=== PATIENT | male | born 1960 | race Caucasian/White ===

== ENCOUNTER 2018-02-20 10:34 | Emergency (ER) | payer MEDICAID ==
[~2018-02-20] VITALS: Ht 177.8 cm; Wt 125.0 kg
[2018-02-20] MEDS ORDERED: LOSA25TA16 PO (10:37)
[2018-02-20] MEDS ORDERED: AMLO2.5T3 PO (10:37)
[2018-02-20] MEDS ORDERED: METF-445 PO (10:37)
[2018-02-20] MEDS ORDERED: HYDROCODONE/ACETAMINOPHEN 5-325 MG TABLET PO ONE (10:45)
[2018-02-20] MEDS ORDERED: IBUPROFEN 600 MG TABLET PO ONE (10:45)
[2018-02-20 11:19] LABS: APPEARANCE,URINE CLOUDY (CLEAR); BILIRUBIN,URINE NEGATIVE (NEGATIVE); GLUCOSE, URINE (UA) 100 mg/dL (NEGATIVE); KETONES,URINE NEGATIVE (NEGATIVE); LEUKOCYTE ESTERASE ,URINE TRACE (NEGATIVE); NITRATE,URINE NEGATIVE (NEGATIVE); OCCULT BLOOD,URINE MODERATE (NEGATIVE); PROTEIN,URINE SEE CONFIRM (NEGATIVE); UROBILINOGEN,URINE 0.2 mg/dL (<=1.0)
[2018-02-20 11:31] LABS: SULFOSALICYLIC ACID,URINE 1+ (Negative)
[2018-02-20 11:34] LABS: BACTERIA,URINE None Seen /HPF (None Seen); SQUAMOUS EPITHELIAL CELL,UR Moderate /LPF (None Seen)
[2018-02-20] MEDS ORDERED: CIPROFLOXACIN HCL 250 MG TABLET PO ONE (14:00)
[2018-02-20] MEDS ORDERED: CefTRIAXone SODIUM 1 GM/VIAL IM ONE (14:00)
[2018-02-20] MEDS ORDERED: AZITHROMYCIN 250 MG TABLET PO ONE (14:00)
[2018-02-20 14:34] VITALS: BP 124/90
== END 2018-02-20 14:54 | disposition home or self-care (01) ==
LOC: EMS 10:35
DX: N45.1 Epididymitis (principal); N50.89 Other specified disorders of the male genital organs; E11.9 Type 2 diabetes mellitus without complications; I10 Essential (primary) hypertension; Z79.84 Long term (current) use of oral hypoglycemic drugs
CPT/HCPCS: 76870; 81001; 82962; 87077; 87086; 87186; 87491; 87591; 96372; 99285; J0696

== ENCOUNTER 2018-09-09 22:40 | Emergency (ER) | payer SELFPAY ==
[~2018-09-09] VITALS: Ht 177.8 cm; Wt 130.4 kg
[~2018-09-09 22:40] MED LIST: AMLO2.5T4 PO; LOSA25TA41 PO; METF-445 PO
[2018-09-09] MEDS ORDERED: AMLO-511 PO (23:07)
[2018-09-09] MEDS ORDERED: LOSA50TA64 PO (23:07)
[2018-09-09 23:27] LABS: GLUCOSE,POINT OF CARE 349 MG/DL (70-110)
[2018-09-10] MEDS ORDERED: CloNIDine HCL 0.2 MG TABLET PO ONE
[2018-09-10 00:19] LABS: BASOPHILS % (AUTO) 0.4 % (0.0-2.0); EOSINOPHILS % (AUTO) 3.1 % (1.0-6.0); HEMATOCRIT 31.4 % (41-53); HEMOGLOBIN 10.5 g/dL (13.5-17.5); MEAN CORPUSCULAR HEMOGLOBIN 30.8 pg (26.0-34.0); MEAN CORPUSCULAR HGB CONC 33.3 G/dL (31.0-37.0); MEAN CORPUSCULAR VOLUME 93 fL (80-100); MONOCYTES # (AUTO) 0.6 K/uL (0.1-1.0); MONOCYTES % (AUTO) 9.6 % (2.0-9.0); NEUTROPHILS # (AUTO) 4.4 K/uL (1.8-7.7); NEUTROPHILS % (AUTO) 70.9 % (40.0-70.0); PLATELET COUNT (AUTO) 125 K/uL (150-450); RED BLOOD CELL COUNT(AUTO) 3.39 MIL/uL (4.50-5.90); RED CELL DISTRIBUTION WIDTH 13.3 % (11.5-14.5)
[2018-09-10 00:32] LABS: CREATININE 5.52 mg/dL (0.60-1.30); POTASSIUM 5.3 mmol/L (3.5-5.1)
[2018-09-10 00:39] LABS: ALBUMIN 3.5 g/dL (3.4-5.0); BILIRUBIN,TOTAL 0.2 mg/dL (0.1-1.0); TOTAL PROTEIN, SERUM 7.2 g/dL (6.4-8.2)
[2018-09-10] MEDS ORDERED: FUROSEMIDE 20 MG TABLET PO ONE (00:45)
[2018-09-10 01:50] VITALS: BP 150/84
== END 2018-09-10 02:18 | disposition home or self-care (01) ==
LOC: EMS 22:41
DX: I12.9 Hypertensive chronic kidney disease with stage 1 through stage 4 chronic kidney disease, or unspecified chronic kidney disease (principal); E11.22 Type 2 diabetes mellitus with diabetic chronic kidney disease; N18.9 Chronic kidney disease, unspecified; H11.32 Conjunctival hemorrhage, left eye; E66.01 Morbid (severe) obesity due to excess calories; Z68.41 Body mass index [BMI] 40.0-44.9, adult; Z79.84 Long term (current) use of oral hypoglycemic drugs
CPT/HCPCS: 93005

== ENCOUNTER 2019-08-16 11:30 | Inpatient (IN) | payer MEDICARE, OTHER ==
[~2019-08-16] VITALS: Ht 172.7 cm; Wt 125.0 kg
[~2019-08-16 11:30] MED LIST changes: -AMLO2.5T4 PO; +AMLO5TAB9 PO; +LOSA-88 PO; -LOSA25TA41 PO
[2019-08-16] MEDS ORDERED: 0.9% SODIUM CHLORIDE 10 ML SYRINGE IVP PRN ×2 (12:45→16:30)
[2019-08-16 13:34] LABS: BASOPHILS % (AUTO) 0.1 % (0.0-2.0); EOSINOPHILS % (AUTO) 0.2 % (1.0-6.0); HEMOGLOBIN 11.5 g/dL (13.5-17.5); LYMPHOCYTES # (AUTO) 0.9 K/uL (1.0-4.8); LYMPHOCYTES % (AUTO) 6.6 % (22.0-44.0); MEAN CORPUSCULAR HEMOGLOBIN 30.5 pg (26.0-34.0); MEAN CORPUSCULAR HGB CONC 32.8 G/dL (31.0-37.0); MEAN CORPUSCULAR VOLUME 93 fL (80-100); MONOCYTES # (AUTO) 1.2 K/uL (0.1-1.0); MONOCYTES % (AUTO) 8.6 % (2.0-9.0); NEUTROPHILS # (AUTO) 11.9 K/uL (1.8-7.7); NEUTROPHILS % (AUTO) 84.5 % (40.0-70.0); PLATELET COUNT (AUTO) 126 K/uL (150-450); RED BLOOD CELL COUNT(AUTO) 3.77 MIL/uL (4.50-5.90); RED CELL DISTRIBUTION WIDTH 14.2 % (11.5-14.5)
[2019-08-16 13:49] LABS: CALCIUM, TOTAL 10.4 mg/dL (8.8-10.5); CREATININE 10.14 mg/dL (0.60-1.30); POTASSIUM 5.1 mmol/L (3.5-5.1)
[2019-08-16 13:55] LABS: LACTIC ACID 1.5 mmol/L (0.4-2.0)
[2019-08-16 14:02] LABS: ALBUMIN 3.3 g/dL (3.4-5.0); BILIRUBIN,TOTAL 0.4 mg/dL (0.1-1.0); TOTAL PROTEIN, SERUM 8.3 g/dL (6.4-8.2)
[2019-08-16 14:15] LABS: APPEARANCE,URINE CLEAR (CLEAR); BILIRUBIN,URINE NEGATIVE (NEGATIVE); GLUCOSE, URINE (UA) 100 mg/dL (NEGATIVE); KETONES,URINE NEGATIVE (NEGATIVE); LEUKOCYTE ESTERASE ,URINE TRACE (NEGATIVE); NITRATE,URINE NEGATIVE (NEGATIVE); OCCULT BLOOD,URINE TRACE (NEGATIVE); PH,URINE 8.5 (5.0-8.0); PROTEIN,URINE SEE CONFIRM (NEGATIVE); UROBILINOGEN,URINE 0.2 mg/dL (<=1.0)
[2019-08-16 14:22] LABS: BACTERIA,URINE None Seen /HPF (None Seen); RBC,URINE 0-2 /HPF (0-2); SULFOSALICYLIC ACID,URINE 2+ (Negative)
[2019-08-16] MEDS ORDERED: ONDANSETRON HCL 4 MG/2 ML VIAL IVP ONE (14:30)
[2019-08-16] MEDS ORDERED: MORPHINE SULFATE 4 MG/ML SYRINGE IVP ONE (14:30)
[2019-08-16] MEDS ORDERED: PIPERACILLIN/TAZO 3.375 GM/D5W 50 ML IV ONE (15:15)
[2019-08-16] MEDS ORDERED: ACETAMINOPHEN 1000 MG/ISO-OSM 100 ML IV ONE (16:30)
[2019-08-16] MEDS ORDERED: ACETAMINOPHEN 325 MG TABLET PO PRN ×2 (16:30→17:15)
[2019-08-16] MEDS ORDERED: HydrALAZINE HCL 20 MG/ML VIAL IVP PRN (17:15)
[2019-08-16] MEDS ORDERED: DEXTROSE 50%-WATER 25 GM/50 ML SYRINGE IVP PRN (17:15)
[2019-08-16] MEDS ORDERED: SODIUM CHLORIDE 0.9% 1,000 ML IV ONE (17:15)
[2019-08-16] MEDS ORDERED: MAGNESIUM HYDROXIDE SUSPENSION 30 ML UDCUP PO PRN (17:15)
[2019-08-16] MEDS ORDERED: ZOLPIDEM TARTRATE 5 MG TABLET PO PRN (17:15)
[2019-08-16] MEDS ORDERED: BISACODYL 10 MG RECTAL RECTAL SUPPOSITORY PR PRN (17:15)
[2019-08-16] MEDS ORDERED: MORPHINE SULFATE 2 MG/ML SYRINGE IVP PRN (17:15)
[2019-08-16] MEDS ORDERED: ONDANSETRON HCL 4 MG/2 ML VIAL IVP PRN (17:15)
[2019-08-16] MEDS ORDERED: BUPIVACAINE HCL/PF 0.25% 30 ML VIAL ONE (17:56)
[2019-08-16] MEDS ORDERED: SODIUM CHLORIDE 0.9% 1,000 ML ONE ×2 (17:56→19:27)
[2019-08-16] MEDS ORDERED: SODIUM CL IRRIG SOLN BAG 0 ML IRRIG ONE (17:56)
[2019-08-16] MEDS ORDERED: BUPIVACAINE 0.25%/EPI 1:200,000/PF 10 ML VIAL ONE (17:57)
[2019-08-16] MEDS ORDERED: HYDROmorphone 2 MG/ML SYRINGE IVP PRN (18:00)
[2019-08-16] MEDS ORDERED: FentaNYL CITRATE-PF 100 MCG/2 ML VIAL IVP PRN (18:00)
[2019-08-16] MEDS ORDERED: CefTRIAXone 1 GM/DEXTROSE 50 ML IV STA (19:08)
[2019-08-16] MEDS ORDERED: MetroNIDAZOLE 500 MG/NACL 100 ML IV STA (19:08)
[2019-08-16 21:35] LABS: GLUCOMETER DEV NAME(LOC) SDS.; GLUCOSE,POINT OF CARE 136 MG/DL (70-110)
[2019-08-16 21:40] VITALS: BP 114/75
[2019-08-16] MEDS: LOSARTAN POTASSIUM 50 MG TABLET PO SCH (22:23)
[2019-08-16] MEDS: DOCUSATE SODIUM 100 MG CAPSULE PO SCH (22:24)
[2019-08-16 23:33] VITALS: BP 126/78
[2019-08-16] MEDS: HYDROCODONE/ACETAMINOPHEN 5-325 MG TABLET PO PRN (23:43)
[2019-08-16] MEDS: HEPARIN SODIUM,PORCINE 5,000 UNITS/ML VIAL SQ SCH (23:43)
[2019-08-17] MEDS ORDERED: SODIUM CHLORIDE 0.9% 250 ML IV ONE (01:30)
[2019-08-17] MEDS: PIPERACILLIN SODIUM/TAZOBACTAM 2.25 GM in DEXTROSE 5%-WATER 50 ML IV SCH ×3 (01:40→18:19)
[2019-08-17 05:01] VITALS: BP 122/68
[2019-08-17 05:45] LABS: BASOPHILS % (AUTO) 0.1 % (0.0-2.0); EOSINOPHILS % (AUTO) 0.1 % (1.0-6.0); HEMATOCRIT 32.8 % (41-53); HEMOGLOBIN 11.2 g/dL (13.5-17.5); LYMPHOCYTES # (AUTO) 0.7 K/uL (1.0-4.8); LYMPHOCYTES % (AUTO) 6.1 % (22.0-44.0); MEAN CORPUSCULAR HEMOGLOBIN 31.8 pg (26.0-34.0); MEAN CORPUSCULAR HGB CONC 34.2 G/dL (31.0-37.0); MEAN CORPUSCULAR VOLUME 93 fL (80-100); MONOCYTES # (AUTO) 0.8 K/uL (0.1-1.0); MONOCYTES % (AUTO) 7.1 % (2.0-9.0); PLATELET COUNT (AUTO) 122 K/uL (150-450); RED BLOOD CELL COUNT(AUTO) 3.54 MIL/uL (4.50-5.90); RED CELL DISTRIBUTION WIDTH 14.1 % (11.5-14.5)
[2019-08-17 05:48] LABS: NEUTROPHILS % (AUTO) 86.6 % (40.0-70.0)
[2019-08-17 05:56] LABS: CALCIUM, TOTAL 8.9 mg/dL (8.8-10.5); CREATININE 10.71 mg/dL (0.60-1.30); POTASSIUM 5.1 mmol/L (3.5-5.1)
[2019-08-17] MEDS ORDERED: PROPOFOL 1% 20 ML VIAL IVP ONE (06:47)
[2019-08-17] MEDS ORDERED: ROCURONIUM BROMIDE 10 MG/ML 5 ML VIAL IVP ONE (06:47)
[2019-08-17] MEDS ORDERED: ONDANSETRON HCL 4 MG/2 ML VIAL IVP ONE (06:47)
[2019-08-17] MEDS ORDERED: LIDOCAINE/PF 2% 5 ML VIAL IM ONE (06:47)
[2019-08-17] MEDS ORDERED: EPHEDrine SULFATE 50 MG/ML VIAL IM ONE (06:47)
[2019-08-17 08:21] VITALS: BP 143/83
[2019-08-17] MEDS: HEPARIN SODIUM,PORCINE 5,000 UNITS/ML VIAL SQ SCH ×3 (08:37→23:41)
[2019-08-17] MEDS: HYDROCODONE/ACETAMINOPHEN 5-325 MG TABLET PO PRN (08:37)
[2019-08-17] MEDS: DOCUSATE SODIUM 100 MG CAPSULE PO SCH ×2 (08:38→20:39)
[2019-08-17] MEDS: LOSARTAN POTASSIUM 50 MG TABLET PO SCH ×2 (08:38→20:38)
[2019-08-17] MEDS: PANTOPRAZOLE SODIUM 40 MG DR TABLET PO SCH (08:38)
[2019-08-17] MEDS: AmLODIPine BESYLATE 5 MG TABLET PO SCH (08:38)
[2019-08-17 09:24] LABS: GLUCOMETER DEV NAME(LOC) 6N.1; GLUCOSE,POINT OF CARE 136 MG/DL (70-110)
[2019-08-17 09:25] LABS: GLUCOMETER DEV NAME(LOC) 6N.1; GLUCOSE,POINT OF CARE 116 MG/DL (70-110)
[2019-08-17] MEDS: OXYGEN THERAPY IH SCH (09:44)
[2019-08-17] MEDS: INSULIN LISPRO 100 UNITS/ML SQ PRN ×2 (11:00→18:18)
[2019-08-17 11:15] VITALS: BP 108/65
[2019-08-17] MEDS ORDERED: MANNITOL 25%-12.5 GM/50 ML VIAL IVP ONE (13:55)
[2019-08-17 14:05] LABS: GLUCOMETER DEV NAME(LOC) 6N.1; GLUCOSE,POINT OF CARE 236 MG/DL (70-110)
[2019-08-17 18:35] VITALS: BP 124/64
[2019-08-17 20:45] VITALS: BP 117/71
[2019-08-17 21:16] LABS: GLUCOMETER DEV NAME(LOC) 6N.1; GLUCOSE,POINT OF CARE 140 MG/DL (70-110)
[2019-08-17 23:00] VITALS: BP 110/66
[2019-08-18 05:30] VITALS: BP 136/77
[2019-08-18] MEDS ORDERED: FentaNYL CITRATE-PF 100 MCG/2 ML VIAL IVP ONE (05:52)
[2019-08-18 06:09] LABS: GLUCOMETER DEV NAME(LOC) 4E.2; GLUCOSE,POINT OF CARE 144 MG/DL (70-110)
[2019-08-18 06:09] LABS: GLUCOMETER DEV NAME(LOC) 4E.2; GLUCOSE,POINT OF CARE 164 MG/DL (70-110)
[2019-08-18 06:09] LABS: GLUCOMETER DEV NAME(LOC) 4E.2; GLUCOSE,POINT OF CARE 187 MG/DL (70-110)
[2019-08-18 06:12] LABS: BASOPHILS % (AUTO) 0.2 % (0.0-2.0); EOSINOPHILS % (AUTO) 1.8 % (1.0-6.0); HEMATOCRIT 29.8 % (41-53); HEMOGLOBIN 9.8 g/dL (13.5-17.5); LYMPHOCYTES # (AUTO) 0.9 K/uL (1.0-4.8); LYMPHOCYTES % (AUTO) 11.3 % (22.0-44.0); MEAN CORPUSCULAR HEMOGLOBIN 31.1 pg (26.0-34.0); MEAN CORPUSCULAR HGB CONC 33.1 G/dL (31.0-37.0); MEAN CORPUSCULAR VOLUME 94 fL (80-100); MONOCYTES # (AUTO) 0.6 K/uL (0.1-1.0); MONOCYTES % (AUTO) 8.3 % (2.0-9.0); NEUTROPHILS % (AUTO) 78.4 % (40.0-70.0); PLATELET COUNT (AUTO) 117 K/uL (150-450); RED BLOOD CELL COUNT(AUTO) 3.17 MIL/uL (4.50-5.90)
[2019-08-18 06:17] LABS: CALCIUM, TOTAL 8.7 mg/dL (8.8-10.5); CREATININE 8.11 mg/dL (0.60-1.30); POTASSIUM 4.5 mmol/L (3.5-5.1)
[2019-08-18 07:57] VITALS: BP 113/71
[2019-08-18] MEDS: OXYGEN THERAPY IH SCH (08:00)
[2019-08-18] MEDS: PANTOPRAZOLE SODIUM 40 MG DR TABLET PO SCH (08:49)
[2019-08-18] MEDS: DOCUSATE SODIUM 100 MG CAPSULE PO SCH (08:49)
[2019-08-18] MEDS: LOSARTAN POTASSIUM 50 MG TABLET PO SCH (08:50)
[2019-08-18] MEDS: AmLODIPine BESYLATE 5 MG TABLET PO SCH (08:50)
[2019-08-18] MEDS: HEPARIN SODIUM,PORCINE 5,000 UNITS/ML VIAL SQ SCH (08:50)
[2019-08-18] MEDS ORDERED: AMOX TR/POT CLAV 500 MG/125 MG TABLET PO SCH (09:00)
[2019-08-18] MEDS: INSULIN LISPRO 100 UNITS/ML SQ PRN (12:09)
[2019-08-18 12:14] VITALS: BP 124/79
[2019-08-18] MEDS ORDERED: AMOX1TAB15 PO (13:32)
[2019-08-18 20:28] LABS: GLUCOMETER DEV NAME(LOC) 4E.2; GLUCOSE,POINT OF CARE 183 MG/DL (70-110)
[2019-08-20] MEDS ORDERED: EPOETIN ALFA 10,000 UNITS/ML 2 ML VIAL SQ SCH (09:00)
== END 2019-08-18 15:10 | disposition home or self-care (01) | DRG 853 ==
LOC: EMS 11:36 → 4E 16:19
PROVIDERS: ADMIT Internal Medicine; ATTEND Internal Medicine
PROC: 0DTJ4ZZ Resection of Appendix, Percutaneous Endoscopic Approach (ICD-10-PCS; principal; 2019-08-16 18:30)
DX: A41.9 Sepsis, unspecified organism (principal); K35.32 Acute appendicitis with perforation, localized peritonitis, and gangrene, without abscess; N18.6 End stage renal disease; I12.0 Hypertensive chronic kidney disease with stage 5 chronic kidney disease or end stage renal disease; Z68.41 Body mass index [BMI] 40.0-44.9, adult; D63.1 Anemia in chronic kidney disease; E11.22 Type 2 diabetes mellitus with diabetic chronic kidney disease; E66.9 Obesity, unspecified; Z99.2 Dependence on renal dialysis
CPT/HCPCS: 74176; 83605; 87040; 87081; 87340; 88304; 90935; G0378; J0131; J0696; J1644; J2150; J2270; J2405; J2543; J2704; J3010; J3490; J7030; J7050; J7060

== ENCOUNTER 2019-12-10 20:29 | Inpatient (IN) | payer MEDICARE, OTHER ==
[~2019-12-10] VITALS: Ht 172.7 cm; Wt 123.4 kg
[~2019-12-10 20:29] MED LIST changes: +AMLO-257 PO; -AMLO5TAB9 PO; +AMOX1TAB15 PO; -LOSA-88 PO; +LOSA50TA37 PO
[2019-12-10] MEDS ORDERED: PHOSLOC PO (20:47)
[2019-12-10] MEDS ORDERED: ALLO300 PO (20:47)
[2019-12-10] MEDS ORDERED: CINA30 PO (20:47)
[2019-12-10] MEDS ORDERED: AMLO-258 PO (20:47)
[2019-12-10] MEDS ORDERED: BUME1TAB34 PO (20:47)
[2019-12-10] MEDS ORDERED: GLIP2.5ER PO (20:47)
[2019-12-10] MEDS ORDERED: GABA-1216 PO (20:47)
[2019-12-10] MEDS ORDERED: ACET160E68 PO (20:48)
[2019-12-10 21:38] LABS: BASOPHILS % (AUTO) 0.3 % (0.0-2.0); EOSINOPHILS % (AUTO) 0.2 % (1.0-6.0); HEMATOCRIT 30.7 % (41-53); HEMOGLOBIN 10.4 g/dL (13.5-17.5); LYMPHOCYTES # (AUTO) 0.4 K/uL (1.0-4.8); LYMPHOCYTES % (AUTO) 13.6 % (22.0-44.0); MEAN CORPUSCULAR HGB CONC 33.8 G/dL (31.0-37.0); MEAN CORPUSCULAR VOLUME 95 fL (80-100); MONOCYTES # (AUTO) 0.2 K/uL (0.1-1.0); MONOCYTES % (AUTO) 7.2 % (2.0-9.0); NEUTROPHILS # (AUTO) 2.4 K/uL (1.8-7.7); NEUTROPHILS % (AUTO) 78.7 % (40.0-70.0); PLATELET COUNT (AUTO) 114 K/uL (150-450); RED BLOOD CELL COUNT(AUTO) 3.24 MIL/uL (4.50-5.90)
[2019-12-10] MEDS: OXYGEN THERAPY IH SCH (21:47)
[2019-12-10 22:03] LABS: CALCIUM, TOTAL 8.8 mg/dL (8.8-10.5); CREATININE 7.96 mg/dL (0.60-1.30); POTASSIUM 4.6 mmol/L (3.5-5.1)
[2019-12-10 22:10] LABS: LACTIC ACID 1.2 mmol/L (0.4-2.0)
[2019-12-10 22:42] LABS: ALBUMIN 3.1 g/dL (3.4-5.0); BILIRUBIN,TOTAL 0.3 mg/dL (0.1-1.0); C-REACTIVE PROTEIN QUANT 8.07 mg/dL (0.00-0.30); MAGNESIUM 1.8 mg/dL (1.80-2.40); TOTAL PROTEIN, SERUM 7.8 g/dL (6.4-8.2)
[2019-12-10] MEDS ORDERED: 0.9% SODIUM CHLORIDE 10 ML SYRINGE IVP PRN ×2 (23:00→23:30)
[2019-12-10] MEDS ORDERED: ACETAMINOPHEN 325 MG TABLET PO PRN ×2 (23:00→23:30)
[2019-12-10] MEDS ORDERED: ONDANSETRON HCL 4 MG/2 ML VIAL IVP PRN ×2 (23:00→23:30)
[2019-12-10] MEDS ORDERED: DEXTROSE 50%-WATER 25 GM/50 ML SYRINGE IVP PRN (23:30)
[2019-12-10 23:35] LABS: INFLUENZA TYPE A NEGATIVE FOR TYPE A (NEGATIVE); INFLUENZA TYPE B NEGATIVE FOR TYPE B (NEGATIVE)
[2019-12-10 23:59] LABS: D-DIMER 1.19 mg/L FEU (0.00-0.50)
[2019-12-11] VITALS (7 sets, daily range): BP systolic 95–145; BP diastolic 55–73
[2019-12-11] MEDS: HEPARIN SODIUM,PORCINE 5,000 UNITS/ML VIAL SQ SCH ×3 (00:09→15:58)
[2019-12-11] MEDS: CefTRIAXone 1 GM/DEXTROSE 50 ML IV SCH ×2 (00:09→23:35)
[2019-12-11] MEDS: AZITHROMYCIN 500 MG/NS 250 ML IV SCH (00:09)
[2019-12-11 03:29] LABS: ABG BASE EXCESS 7.2 mmol/L (-2.0-3.0); ABG CARBOXYHEMOGLOBIN 1.1 % (0.0-1.5); ABG HCO3 30.3 mmol/L (22.0-26.0); ABG METHEMOGLOBIN 0.3 % (0.0-1.5); ABG OXYGEN CONTENT 11.9 mL/dL (15.0-23.0); ABG OXYHEMOGLOBIN 83.8 % (94.0-100.0); ABG PCO2 42 mmHg (35-45); ABG PH 7.484 (7.35-7.450); ABG TOTAL HEMOGLOBIN 10.1 G/dL (12.0-18.0); PO2, ARTERIAL BG 52.8 mmHg (84.0-92.0); SOURCE, BLOOD GAS ARTERIAL; TEMPERATURE, FAHRENHEIT, BG 100.3 FAHREN (96.0-98.6)
[2019-12-11] MEDS ORDERED: PNEUMOCOCCAL VACCINE POLYVALENT 0.5 ML VIAL [PPSV23] IM ONE (03:30)
[2019-12-11 03:32] LABS: O2 DEVICE,BLOOD GAS CANNULA (ROOM AIR); SITE, BLOOD GAS RT RADIAL
[2019-12-11] MEDS ORDERED: HEPARIN SODIUM,PORCINE 5,000 UNITS/ML VIAL IVP PRN ×2 (05:30)
[2019-12-11] MEDS: HEPARIN SODIUM 25000 UNITS/D5W 250 ML IV PRN (06:19)
[2019-12-11 06:32] LABS: BASOPHILS % (AUTO) 0.5 % (0.0-2.0); EOSINOPHILS % (AUTO) 0.2 % (1.0-6.0); HEMATOCRIT 29.3 % (41-53); LYMPHOCYTES # (AUTO) 0.6 K/uL (1.0-4.8); LYMPHOCYTES % (AUTO) 16.9 % (22.0-44.0); MEAN CORPUSCULAR HEMOGLOBIN 32.1 pg (26.0-34.0); MEAN CORPUSCULAR VOLUME 94 fL (80-100); MONOCYTES # (AUTO) 0.2 K/uL (0.1-1.0); MONOCYTES % (AUTO) 6.9 % (2.0-9.0); NEUTROPHILS # (AUTO) 2.6 K/uL (1.8-7.7); NEUTROPHILS % (AUTO) 75.5 % (40.0-70.0); PLATELET COUNT (AUTO) 113 K/uL (150-450); RED BLOOD CELL COUNT(AUTO) 3.11 MIL/uL (4.50-5.90); RED CELL DISTRIBUTION WIDTH 13.8 % (11.5-14.5)
[2019-12-11 07:16] LABS: D-DIMER 0.99 mg/L FEU (0.00-0.50)
[2019-12-11 07:37] LABS: INR 1.1 (0.9-1.1); PROTHROMBIN TIME 11.2 SEC (9.4-11.6)
[2019-12-11 07:50] LABS: GLUCOMETER DEV NAME(LOC) 5S.2A; GLUCOSE,POINT OF CARE 79 MG/DL (70-110)
[2019-12-11 07:50] LABS: GLUCOMETER DEV NAME(LOC) 5S.2A; GLUCOSE,POINT OF CARE 65 MG/DL (70-110)
[2019-12-11] MEDS: OXYGEN THERAPY IH SCH ×3 (08:00→21:42)
[2019-12-11 08:05] LABS: ALBUMIN 2.9 g/dL (3.4-5.0); BILIRUBIN,TOTAL 0.3 mg/dL (0.1-1.0); C-REACTIVE PROTEIN QUANT 8.89 mg/dL (0.00-0.30); CALCIUM, TOTAL 8.6 mg/dL (8.8-10.5); CREATININE 9.04 mg/dL (0.60-1.30); MAGNESIUM 1.8 mg/dL (1.80-2.40); POTASSIUM 4.5 mmol/L (3.5-5.1); TOTAL PROTEIN, SERUM 7.6 g/dL (6.4-8.2)
[2019-12-11] MEDS: ALLOPURINOL 100 MG TABLET PO SCH (08:29)
[2019-12-11] MEDS: DEXAMETHASONE SOD PHOS 4 MG/ML VIAL IVP SCH (08:29)
[2019-12-11] MEDS: BUMETANIDE 1 MG TABLET PO SCH ×2 (08:29→21:34)
[2019-12-11] MEDS: CINACALCET HCL 30 MG TABLET PO SCH (08:29)
[2019-12-11] MEDS: AmLODIPine BESYLATE 10 MG TABLET PO SCH (08:30)
[2019-12-11] MEDS: CALCIUM ACETATE 667 MG CAPSULE PO SCH ×3 (08:30→18:04)
[2019-12-11] MEDS: GABAPENTIN 100 MG CAPSULE PO SCH (13:22)
[2019-12-11] MEDS ORDERED: ACET-66 PO (16:09)
[2019-12-11] MEDS ORDERED: HYDR-2924 PO (16:09)
[2019-12-11 16:31] LABS: GLUCOMETER DEV NAME(LOC) 5N.3; GLUCOSE,POINT OF CARE 118 MG/DL (70-110)
[2019-12-11] MEDS: INSULIN LISPRO 100 UNITS/ML SQ PRN ×2 (18:11→21:37)
[2019-12-11] MEDS: INSULIN GLARGINE,HUM.REC.ANLOG 100 UNITS/ML SQ SCH (21:35)
[2019-12-11 23:05] LABS: GLUCOMETER DEV NAME(LOC) 5S.1; GLUCOSE,POINT OF CARE 212 MG/DL (70-110)
[2019-12-11 23:05] LABS: GLUCOMETER DEV NAME(LOC) 5S.1; GLUCOSE,POINT OF CARE 187 MG/DL (70-110)
[2019-12-11] MEDS ORDERED: SODIUM CHLORIDE 0.9% 100 ML ONE (23:32)
[2019-12-12] VITALS (10 sets, daily range): BP systolic 104–138; BP diastolic 56–78
[2019-12-12] MEDS: AZITHROMYCIN 500 MG/NS 250 ML IV SCH (00:07)
[2019-12-12 06:32] LABS: GLUCOMETER DEV NAME(LOC) 5S.1; GLUCOSE,POINT OF CARE 119 MG/DL (70-110)
[2019-12-12 06:51] LABS: BASOPHILS % (AUTO) 0.2 % (0.0-2.0); EOSINOPHILS % (AUTO) 0 % (1.0-6.0); HEMATOCRIT 27.8 % (41-53); HEMOGLOBIN 9.6 g/dL (13.5-17.5); LYMPHOCYTES # (AUTO) 0.4 K/uL (1.0-4.8); LYMPHOCYTES % (AUTO) 12.8 % (22.0-44.0); MEAN CORPUSCULAR HEMOGLOBIN 32.7 pg (26.0-34.0); MEAN CORPUSCULAR HGB CONC 34.6 G/dL (31.0-37.0); MEAN CORPUSCULAR VOLUME 95 fL (80-100); MONOCYTES # (AUTO) 0.2 K/uL (0.1-1.0); MONOCYTES % (AUTO) 6.6 % (2.0-9.0); NEUTROPHILS # (AUTO) 2.8 K/uL (1.8-7.7); NEUTROPHILS % (AUTO) 80.4 % (40.0-70.0); PLATELET COUNT (AUTO) 135 K/uL (150-450); RED BLOOD CELL COUNT(AUTO) 2.94 MIL/uL (4.50-5.90)
[2019-12-12 07:12] LABS: D-DIMER 0.85 mg/L FEU (0.00-0.50)
[2019-12-12 07:46] LABS: ALBUMIN 2.9 g/dL (3.4-5.0); BILIRUBIN,TOTAL 0.3 mg/dL (0.1-1.0); C-REACTIVE PROTEIN QUANT 9.02 mg/dL (0.00-0.30); CALCIUM, TOTAL 8.7 mg/dL (8.8-10.5); CREATININE 11.31 mg/dL (0.60-1.30); POTASSIUM 4.7 mmol/L (3.5-5.1); TOTAL PROTEIN, SERUM 7.5 g/dL (6.4-8.2)
[2019-12-12] MEDS: CALCIUM ACETATE 667 MG CAPSULE PO SCH ×3 (08:40→17:47)
[2019-12-12] MEDS: ALLOPURINOL 100 MG TABLET PO SCH (08:41)
[2019-12-12] MEDS: GABAPENTIN 100 MG CAPSULE PO SCH (08:41)
[2019-12-12] MEDS: BUMETANIDE 1 MG TABLET PO SCH ×2 (08:41→21:00)
[2019-12-12] MEDS: CINACALCET HCL 30 MG TABLET PO SCH (08:41)
[2019-12-12] MEDS: DEXAMETHASONE SOD PHOS 4 MG/ML VIAL IVP SCH (08:42)
[2019-12-12] MEDS: OXYGEN THERAPY IH SCH ×2 (08:51→20:59)
[2019-12-12] MEDS: AmLODIPine BESYLATE 10 MG TABLET PO SCH (09:00)
[2019-12-12 10:12] LABS: APPEARANCE,URINE CLEAR (CLEAR); BILIRUBIN,URINE NEGATIVE (NEGATIVE); GLUCOSE, URINE (UA) 100 mg/dL (NEGATIVE); KETONES,URINE NEGATIVE (NEGATIVE); LEUKOCYTE ESTERASE ,URINE MODERATE (NEGATIVE); NITRATE,URINE NEGATIVE (NEGATIVE); OCCULT BLOOD,URINE SMALL (NEGATIVE); PH,URINE 7.5 (5.0-8.0); PROTEIN,URINE SEE CONFIRM (NEGATIVE); UROBILINOGEN,URINE 0.2 mg/dL (<=1.0)
[2019-12-12 10:36] LABS: SULFOSALICYLIC ACID,URINE 3+ (Negative)
[2019-12-12 10:37] LABS: BACTERIA,URINE None Seen /HPF (None Seen); SQUAMOUS EPITHELIAL CELL,UR Moderate /LPF (None Seen)
[2019-12-12] MEDS ORDERED: SODIUM CHLORIDE 0.9% 2,000 ML ONE (10:53)
[2019-12-12] MEDS: INSULIN LISPRO 100 UNITS/ML SQ PRN ×3 (12:39→21:11)
[2019-12-12] MEDS ORDERED: SODIUM CHLORIDE 0.9% 250 ML IV ONE (14:18)
[2019-12-12 15:56] LABS: GLUCOMETER DEV NAME(LOC) 5N.3; GLUCOSE,POINT OF CARE 182 MG/DL (70-110)
[2019-12-12] MEDS: HEPARIN SODIUM 25000 UNITS/D5W 250 ML IV PRN (16:47)
[2019-12-12 19:44] LABS: GLUCOMETER DEV NAME(LOC) 5N.3; GLUCOSE,POINT OF CARE 201 MG/DL (70-110)
[2019-12-12] MEDS: INSULIN GLARGINE,HUM.REC.ANLOG 100 UNITS/ML SQ SCH (21:12)
[2019-12-12] MEDS: CefTRIAXone 1 GM/DEXTROSE 50 ML IV SCH (22:49)
[2019-12-13] MEDS: AZITHROMYCIN 500 MG/NS 250 ML IV SCH (00:24)
[2019-12-13 00:36] LABS: GLUCOMETER DEV NAME(LOC) 5N.3; GLUCOSE,POINT OF CARE 274 MG/DL (70-110)
[2019-12-13 05:02] VITALS: BP 130/74
[2019-12-13] MEDS: INSULIN LISPRO 100 UNITS/ML SQ PRN ×4 (06:01→22:04)
[2019-12-13 07:37] LABS: BASOPHILS % (AUTO) 0.1 % (0.0-2.0); EOSINOPHILS % (AUTO) 0 % (1.0-6.0); HEMATOCRIT 28.6 % (41-53); HEMOGLOBIN 9.5 g/dL (13.5-17.5); LYMPHOCYTES # (AUTO) 0.4 K/uL (1.0-4.8); LYMPHOCYTES % (AUTO) 8.6 % (22.0-44.0); MEAN CORPUSCULAR HEMOGLOBIN 31.5 pg (26.0-34.0); MEAN CORPUSCULAR HGB CONC 33.1 G/dL (31.0-37.0); MEAN CORPUSCULAR VOLUME 95 fL (80-100); MONOCYTES # (AUTO) 0.3 K/uL (0.1-1.0); MONOCYTES % (AUTO) 5.7 % (2.0-9.0); NEUTROPHILS # (AUTO) 4.3 K/uL (1.8-7.7); PLATELET COUNT (AUTO) 163 K/uL (150-450); RED BLOOD CELL COUNT(AUTO) 3.01 MIL/uL (4.50-5.90); RED CELL DISTRIBUTION WIDTH 13.6 % (11.5-14.5)
[2019-12-13 07:43] LABS: NEUTROPHILS % (AUTO) 85.6 % (40.0-70.0)
[2019-12-13 07:52] LABS: D-DIMER 1.1 mg/L FEU (0.00-0.50)
[2019-12-13] MEDS: CALCIUM ACETATE 667 MG CAPSULE PO SCH ×3 (08:23→17:28)
[2019-12-13] MEDS: BUMETANIDE 1 MG TABLET PO SCH ×2 (08:23→20:37)
[2019-12-13] MEDS: ALLOPURINOL 100 MG TABLET PO SCH (08:23)
[2019-12-13] MEDS: CINACALCET HCL 30 MG TABLET PO SCH (08:23)
[2019-12-13] MEDS: GABAPENTIN 100 MG CAPSULE PO SCH (08:23)
[2019-12-13] MEDS: DEXAMETHASONE SOD PHOS 4 MG/ML VIAL IVP SCH (08:23)
[2019-12-13 08:25] LABS: ALBUMIN 2.9 g/dL (3.4-5.0); BILIRUBIN,TOTAL 0.3 mg/dL (0.1-1.0); C-REACTIVE PROTEIN QUANT 5.13 mg/dL (0.00-0.30); CALCIUM, TOTAL 8.8 mg/dL (8.8-10.5); CREATININE 7.69 mg/dL (0.60-1.30); POTASSIUM 4.8 mmol/L (3.5-5.1); TOTAL PROTEIN, SERUM 7.6 g/dL (6.4-8.2)
[2019-12-13 08:32] VITALS: BP 118/68
[2019-12-13] MEDS: OXYGEN THERAPY IH SCH ×2 (08:32→22:05)
[2019-12-13 11:49] VITALS: BP 117/69
[2019-12-13 15:02] VITALS: BP 123/69
[2019-12-13 20:09] LABS: GLUCOMETER DEV NAME(LOC) 5S.1; GLUCOSE,POINT OF CARE 191 MG/DL (70-110)
[2019-12-13 20:09] LABS: GLUCOMETER DEV NAME(LOC) 5N.3; GLUCOSE,POINT OF CARE 146 MG/DL (70-110)
[2019-12-13 20:10] LABS: GLUCOMETER DEV NAME(LOC) 5N.3; GLUCOSE,POINT OF CARE 269 MG/DL (70-110)
[2019-12-13 20:26] VITALS: BP 115/65
[2019-12-13] MEDS: INSULIN GLARGINE,HUM.REC.ANLOG 100 UNITS/ML SQ SCH (22:03)
[2019-12-13] MEDS: CefTRIAXone 1 GM/DEXTROSE 50 ML IV SCH (23:34)
[2019-12-13] MEDS ORDERED: SODIUM CHLORIDE 0.9% 250 ML IV ONE (23:38)
[2019-12-13 23:56] VITALS: BP 120/69
[2019-12-14] VITALS (9 sets, daily range): BP systolic 103–164; BP diastolic 60–84
[2019-12-14] MEDS: AZITHROMYCIN 500 MG/NS 250 ML IV SCH (00:29)
[2019-12-14 01:22] LABS: GLUCOMETER DEV NAME(LOC) 5N.3; GLUCOSE,POINT OF CARE 281 MG/DL (70-110)
[2019-12-14] MEDS: INSULIN LISPRO 100 UNITS/ML SQ PRN ×4 (06:04→22:15)
[2019-12-14 06:28] LABS: EOSINOPHILS % (AUTO) 0 % (1.0-6.0); HEMATOCRIT 28.2 % (41-53); HEMOGLOBIN 9.7 g/dL (13.5-17.5); LYMPHOCYTES # (AUTO) 0.5 K/uL (1.0-4.8); LYMPHOCYTES % (AUTO) 10.1 % (22.0-44.0); MEAN CORPUSCULAR HEMOGLOBIN 32.3 pg (26.0-34.0); MEAN CORPUSCULAR HGB CONC 34.3 G/dL (31.0-37.0); MEAN CORPUSCULAR VOLUME 94 fL (80-100); MONOCYTES # (AUTO) 0.3 K/uL (0.1-1.0); MONOCYTES % (AUTO) 5.3 % (2.0-9.0); NEUTROPHILS # (AUTO) 4.4 K/uL (1.8-7.7); NEUTROPHILS % (AUTO) 84.6 % (40.0-70.0); PLATELET COUNT (AUTO) 180 K/uL (150-450); RED CELL DISTRIBUTION WIDTH 13.8 % (11.5-14.5)
[2019-12-14 06:48] LABS: D-DIMER 1.07 mg/L FEU (0.00-0.50)
[2019-12-14 07:26] LABS: ALBUMIN 2.9 g/dL (3.4-5.0); BILIRUBIN,TOTAL 0.3 mg/dL (0.1-1.0); C-REACTIVE PROTEIN QUANT 3.26 mg/dL (0.00-0.30); CALCIUM, TOTAL 8.9 mg/dL (8.8-10.5); CREATININE 9.88 mg/dL (0.60-1.30); POTASSIUM 4.9 mmol/L (3.5-5.1); TOTAL PROTEIN, SERUM 7.7 g/dL (6.4-8.2)
[2019-12-14 08:08] LABS: GLUCOMETER DEV NAME(LOC) 5S.1; GLUCOSE,POINT OF CARE 177 MG/DL (70-110)
[2019-12-14] MEDS: CINACALCET HCL 30 MG TABLET PO SCH (08:24)
[2019-12-14] MEDS: CALCIUM ACETATE 667 MG CAPSULE PO SCH ×3 (08:24→18:05)
[2019-12-14] MEDS: GABAPENTIN 100 MG CAPSULE PO SCH (08:24)
[2019-12-14] MEDS: BUMETANIDE 1 MG TABLET PO SCH ×2 (08:25→21:45)
[2019-12-14] MEDS: ALLOPURINOL 100 MG TABLET PO SCH (08:25)
[2019-12-14] MEDS: DEXAMETHASONE SOD PHOS 4 MG/ML VIAL IVP SCH (08:25)
[2019-12-14] MEDS: EPOETIN ALFA 10,000 UNITS/ML VIAL SQ SCH (08:36)
[2019-12-14] MEDS: OXYGEN THERAPY IH SCH ×2 (08:46→21:45)
[2019-12-14] MEDS: HEPARIN SODIUM 25000 UNITS/D5W 250 ML IV PRN (09:30)
[2019-12-14] MEDS ORDERED: SODIUM CHLORIDE 0.9% 2,000 ML ONE (11:17)
[2019-12-14] MEDS ORDERED: SODIUM CHLORIDE 0.9% 250 ML IV ONE (12:57)
[2019-12-14] MEDS: INSULIN GLARGINE,HUM.REC.ANLOG 100 UNITS/ML SQ SCH (22:14)
[2019-12-14] MEDS: CefTRIAXone 1 GM/DEXTROSE 50 ML IV SCH (23:53)
[2019-12-15] MEDS: AZITHROMYCIN 500 MG/NS 250 ML IV SCH ×2 (00:20→23:33)
[2019-12-15 06:02] VITALS: BP 129/78
[2019-12-15 06:29] LABS: BASOPHILS % (AUTO) 0.1 % (0.0-2.0); EOSINOPHILS % (AUTO) 0 % (1.0-6.0); HEMOGLOBIN 9.6 g/dL (13.5-17.5); LYMPHOCYTES # (AUTO) 0.5 K/uL (1.0-4.8); LYMPHOCYTES % (AUTO) 8.2 % (22.0-44.0); MEAN CORPUSCULAR HEMOGLOBIN 31.4 pg (26.0-34.0); MEAN CORPUSCULAR HGB CONC 33.1 G/dL (31.0-37.0); MEAN CORPUSCULAR VOLUME 95 fL (80-100); MONOCYTES # (AUTO) 0.4 K/uL (0.1-1.0); MONOCYTES % (AUTO) 7.7 % (2.0-9.0); NEUTROPHILS # (AUTO) 4.9 K/uL (1.8-7.7); PLATELET COUNT (AUTO) 190 K/uL (150-450); RED BLOOD CELL COUNT(AUTO) 3.05 MIL/uL (4.50-5.90); RED CELL DISTRIBUTION WIDTH 13.8 % (11.5-14.5)
[2019-12-15] MEDS: INSULIN LISPRO 100 UNITS/ML SQ PRN ×4 (06:41→21:46)
[2019-12-15 06:48] LABS: D-DIMER 1.02 mg/L FEU (0.00-0.50)
[2019-12-15 07:34] LABS: ALBUMIN 2.8 g/dL (3.4-5.0); BILIRUBIN,TOTAL 0.3 mg/dL (0.1-1.0); C-REACTIVE PROTEIN QUANT 2.05 mg/dL (0.00-0.30); CALCIUM, TOTAL 8.7 mg/dL (8.8-10.5); CREATININE 8.34 mg/dL (0.60-1.30); POTASSIUM 4.9 mmol/L (3.5-5.1); TOTAL PROTEIN, SERUM 7.3 g/dL (6.4-8.2)
[2019-12-15 07:38] LABS: GLUCOMETER DEV NAME(LOC) 5S.1; GLUCOSE,POINT OF CARE 193 MG/DL (70-110)
[2019-12-15 07:38] LABS: GLUCOMETER DEV NAME(LOC) 5S.1; GLUCOSE,POINT OF CARE 351 MG/DL (70-110)
[2019-12-15] MEDS: CALCIUM ACETATE 667 MG CAPSULE PO SCH ×3 (08:04→17:54)
[2019-12-15] MEDS: CINACALCET HCL 30 MG TABLET PO SCH (08:04)
[2019-12-15] MEDS: GABAPENTIN 100 MG CAPSULE PO SCH (08:04)
[2019-12-15] MEDS: BUMETANIDE 1 MG TABLET PO SCH ×2 (08:04→21:43)
[2019-12-15] MEDS: ALLOPURINOL 100 MG TABLET PO SCH (08:04)
[2019-12-15] MEDS: DEXAMETHASONE SOD PHOS 4 MG/ML VIAL IVP SCH (08:07)
[2019-12-15] MEDS: OXYGEN THERAPY IH SCH ×2 (08:25→21:52)
[2019-12-15 08:34] VITALS: BP 136/98
[2019-12-15 12:37] VITALS: BP 140/82
[2019-12-15 15:00] VITALS: BP 148/88
[2019-12-15 17:18] LABS: GLUCOMETER DEV NAME(LOC) 5N.3; GLUCOSE,POINT OF CARE 247 MG/DL (70-110)
[2019-12-15 17:18] LABS: GLUCOMETER DEV NAME(LOC) 5N.3; GLUCOSE,POINT OF CARE 304 MG/DL (70-110)
[2019-12-15 17:18] LABS: GLUCOMETER DEV NAME(LOC) 5N.3; GLUCOSE,POINT OF CARE 178 MG/DL (70-110)
[2019-12-15 17:18] LABS: GLUCOMETER DEV NAME(LOC) 5N.3; GLUCOSE,POINT OF CARE 268 MG/DL (70-110)
[2019-12-15 20:45] VITALS: BP 151/73
[2019-12-15] MEDS: INSULIN GLARGINE,HUM.REC.ANLOG 100 UNITS/ML SQ SCH (21:46)
[2019-12-15] MEDS: CefTRIAXone 1 GM/DEXTROSE 50 ML IV SCH (22:54)
[2019-12-16] VITALS (7 sets, daily range): BP systolic 134–155; BP diastolic 66–91
[2019-12-16] MEDS: HEPARIN SODIUM 25000 UNITS/D5W 250 ML IV PRN (00:47)
[2019-12-16 01:46] LABS: GLUCOMETER DEV NAME(LOC) 5N.1; GLUCOSE,POINT OF CARE 293 MG/DL (70-110)
[2019-12-16] MEDS: INSULIN LISPRO 100 UNITS/ML SQ PRN ×4 (05:41→20:28)
[2019-12-16 07:58] LABS: GLUCOMETER DEV NAME(LOC) 5N.1; GLUCOSE,POINT OF CARE 192 MG/DL (70-110)
[2019-12-16] MEDS: CINACALCET HCL 30 MG TABLET PO SCH (07:58)
[2019-12-16] MEDS: ALLOPURINOL 100 MG TABLET PO SCH (07:58)
[2019-12-16] MEDS: CALCIUM ACETATE 667 MG CAPSULE PO SCH ×3 (07:58→17:22)
[2019-12-16] MEDS: GABAPENTIN 100 MG CAPSULE PO SCH (07:58)
[2019-12-16] MEDS: OXYGEN THERAPY IH SCH ×2 (08:02→20:22)
[2019-12-16] MEDS: DEXAMETHASONE SOD PHOS 4 MG/ML VIAL IVP SCH (09:07)
[2019-12-16] MEDS: EPOETIN ALFA 10,000 UNITS/ML VIAL SQ SCH (09:24)
[2019-12-16 17:06] LABS: GLUCOMETER DEV NAME(LOC) 5S.1; GLUCOSE,POINT OF CARE 223 MG/DL (70-110)
[2019-12-16] MEDS: BUMETANIDE 1 MG TABLET PO SCH ×2 (17:22→20:22)
[2019-12-16] MEDS: INSULIN GLARGINE,HUM.REC.ANLOG 100 UNITS/ML SQ SCH (20:27)
[2019-12-16] MEDS: CefTRIAXone 1 GM/DEXTROSE 50 ML IV SCH (23:08)
[2019-12-17 04:03] VITALS: BP 130/78
[2019-12-17 05:41] LABS: GLUCOMETER DEV NAME(LOC) 5S.1; GLUCOSE,POINT OF CARE 295 MG/DL (70-110)
[2019-12-17] MEDS: INSULIN LISPRO 100 UNITS/ML SQ PRN ×4 (06:07→20:37)
[2019-12-17 06:56] LABS: BASOPHILS % (AUTO) 0.2 % (0.0-2.0); EOSINOPHILS % (AUTO) 0 % (1.0-6.0); HEMATOCRIT 29.8 % (41-53); HEMOGLOBIN 10.2 g/dL (13.5-17.5); LYMPHOCYTES # (AUTO) 0.6 K/uL (1.0-4.8); LYMPHOCYTES % (AUTO) 8.5 % (22.0-44.0); MEAN CORPUSCULAR HEMOGLOBIN 32.2 pg (26.0-34.0); MEAN CORPUSCULAR HGB CONC 34.2 G/dL (31.0-37.0); MEAN CORPUSCULAR VOLUME 94 fL (80-100); MONOCYTES # (AUTO) 0.6 K/uL (0.1-1.0); MONOCYTES % (AUTO) 8.5 % (2.0-9.0); NEUTROPHILS # (AUTO) 5.6 K/uL (1.8-7.7); NEUTROPHILS % (AUTO) 82.8 % (40.0-70.0); RED BLOOD CELL COUNT(AUTO) 3.17 MIL/uL (4.50-5.90); RED CELL DISTRIBUTION WIDTH 13.9 % (11.5-14.5)
[2019-12-17] MEDS ORDERED: DEXTROSE 50%-WATER 25 GM/50 ML SYRINGE IVP ONE (07:30)
[2019-12-17] MEDS ORDERED: INSULIN REGULAR, HUMAN 100 UNITS/ML IVP ONE (07:30)
[2019-12-17] MEDS ORDERED: CALCIUM GLUCONATE 0.465 MEQ/ML 10 ML VIAL IVP ONE (07:30)
[2019-12-17] MEDS ORDERED: BUMETANIDE 0.25 MG/ML 4 ML VIAL IVP ONE (07:30)
[2019-12-17] MEDS ORDERED: SODIUM POLYSTYRENE SULFONATE 15 GM/60 ML SUSPENSION BOTTLE PO ONE ×2 (07:30→09:45)
[2019-12-17 07:56] VITALS: BP 120/76
[2019-12-17 08:01] LABS: ALBUMIN 2.9 g/dL (3.4-5.0); BILIRUBIN,TOTAL 0.2 mg/dL (0.1-1.0); C-REACTIVE PROTEIN QUANT 0.72 mg/dL (0.00-0.30); CALCIUM, TOTAL 8.9 mg/dL (8.8-10.5); CREATININE 7.69 mg/dL (0.60-1.30); POTASSIUM 5.3 mmol/L (3.5-5.1); TOTAL PROTEIN, SERUM 7.4 g/dL (6.4-8.2)
[2019-12-17 08:41] LABS: GLUCOMETER DEV NAME(LOC) 5S.1; GLUCOSE,POINT OF CARE 193 MG/DL (70-110)
[2019-12-17] MEDS: CALCIUM ACETATE 667 MG CAPSULE PO SCH ×3 (09:29→18:09)
[2019-12-17] MEDS: GABAPENTIN 100 MG CAPSULE PO SCH (09:30)
[2019-12-17] MEDS: ALLOPURINOL 100 MG TABLET PO SCH (09:30)
[2019-12-17] MEDS: OXYGEN THERAPY IH SCH ×2 (09:30→20:27)
[2019-12-17] MEDS: CINACALCET HCL 30 MG TABLET PO SCH (09:30)
[2019-12-17] MEDS: DEXAMETHASONE 2 MG TABLET PO SCH (09:30)
[2019-12-17] MEDS: BUMETANIDE 1 MG TABLET PO SCH ×2 (09:30→20:28)
[2019-12-17 10:39] VITALS: BP 125/77
[2019-12-17] MEDS: HEPARIN SODIUM 25000 UNITS/D5W 250 ML IV PRN (11:02)
[2019-12-17 12:20] LABS: PLATELET MORPHOLOGY COMMENT LARGE PLTS PRESENT
[2019-12-17 12:21] LABS: PLATELET COUNT (AUTO) 178 K/uL (150-450)
[2019-12-17 12:47] LABS: GLUCOMETER DEV NAME(LOC) 5N.1; GLUCOSE,POINT OF CARE 188 MG/DL (70-110)
[2019-12-17 13:33] LABS: GLUCOMETER DEV NAME(LOC) 5N.3; GLUCOSE,POINT OF CARE 164 MG/DL (70-110)
[2019-12-17 14:53] VITALS: BP 148/74
[2019-12-17 19:15] VITALS: BP 143/82
[2019-12-17] MEDS: INSULIN GLARGINE,HUM.REC.ANLOG 100 UNITS/ML SQ SCH (20:37)
[2019-12-17 21:53] LABS: GLUCOMETER DEV NAME(LOC) 5S.1; GLUCOSE,POINT OF CARE 324 MG/DL (70-110)
[2019-12-17 21:53] LABS: GLUCOMETER DEV NAME(LOC) 5S.1; GLUCOSE,POINT OF CARE 250 MG/DL (70-110)
[2019-12-17] MEDS: CefTRIAXone 1 GM/DEXTROSE 50 ML IV SCH (22:39)
[2019-12-17 23:45] VITALS: BP 131/78
[2019-12-18 03:55] VITALS: BP 127/78
[2019-12-18] MEDS: INSULIN LISPRO 100 UNITS/ML SQ PRN ×5 (05:53→21:53)
[2019-12-18 07:06] LABS: BASOPHILS % (AUTO) 0.3 % (0.0-2.0); EOSINOPHILS % (AUTO) 0.2 % (1.0-6.0); HEMATOCRIT 30.3 % (41-53); HEMOGLOBIN 10.3 g/dL (13.5-17.5); LYMPHOCYTES # (AUTO) 0.6 K/uL (1.0-4.8); LYMPHOCYTES % (AUTO) 9.5 % (22.0-44.0); MEAN CORPUSCULAR HGB CONC 34.1 G/dL (31.0-37.0); MEAN CORPUSCULAR VOLUME 94 fL (80-100); MONOCYTES # (AUTO) 0.5 K/uL (0.1-1.0); MONOCYTES % (AUTO) 7.2 % (2.0-9.0); NEUTROPHILS # (AUTO) 5.3 K/uL (1.8-7.7); NEUTROPHILS % (AUTO) 82.8 % (40.0-70.0); PLATELET COUNT (AUTO) 241 K/uL (150-450); RED BLOOD CELL COUNT(AUTO) 3.23 MIL/uL (4.50-5.90); RED CELL DISTRIBUTION WIDTH 13.7 % (11.5-14.5)
[2019-12-18 07:25] VITALS: BP 101/67
[2019-12-18 07:31] LABS: GLUCOMETER DEV NAME(LOC) 5S.1; GLUCOSE,POINT OF CARE 191 MG/DL (70-110)
[2019-12-18 07:37] LABS: D-DIMER 1.35 mg/L FEU (0.00-0.50)
[2019-12-18 07:59] LABS: ALBUMIN 2.9 g/dL (3.4-5.0); BILIRUBIN,TOTAL 0.3 mg/dL (0.1-1.0); C-REACTIVE PROTEIN QUANT 0.49 mg/dL (0.00-0.30); CALCIUM, TOTAL 8.6 mg/dL (8.8-10.5); CREATININE 9.14 mg/dL (0.60-1.30); POTASSIUM 4.7 mmol/L (3.5-5.1); TOTAL PROTEIN, SERUM 7.4 g/dL (6.4-8.2)
[2019-12-18] MEDS: CALCIUM ACETATE 667 MG CAPSULE PO SCH ×3 (08:00→17:30)
[2019-12-18] MEDS: GABAPENTIN 100 MG CAPSULE PO SCH (11:13)
[2019-12-18] MEDS: DEXAMETHASONE 2 MG TABLET PO SCH (11:13)
[2019-12-18] MEDS: ALLOPURINOL 100 MG TABLET PO SCH (11:13)
[2019-12-18] MEDS: BUMETANIDE 1 MG TABLET PO SCH ×2 (11:13→20:23)
[2019-12-18] MEDS: CINACALCET HCL 30 MG TABLET PO SCH (11:13)
[2019-12-18] MEDS: OXYGEN THERAPY IH SCH ×2 (11:14→20:24)
[2019-12-18 11:35] VITALS: BP 118/58
[2019-12-18] MEDS: EPOETIN ALFA 10,000 UNITS/ML VIAL SQ SCH (13:28)
[2019-12-18 16:35] VITALS: BP 139/80
[2019-12-18 17:18] LABS: GLUCOMETER DEV NAME(LOC) 5N.1; GLUCOSE,POINT OF CARE 180 MG/DL (70-110)
[2019-12-18 20:23] LABS: GLUCOMETER DEV NAME(LOC) 5N.1; GLUCOSE,POINT OF CARE 354 MG/DL (70-110)
[2019-12-18] MEDS: INSULIN GLARGINE,HUM.REC.ANLOG 100 UNITS/ML SQ SCH (20:27)
[2019-12-18 20:39] VITALS: BP 131/79
[2019-12-18 21:31] LABS: GLUCOMETER DEV NAME(LOC) 5N.1; GLUCOSE,POINT OF CARE 455 MG/DL (70-110)
[2019-12-18] MEDS: CefTRIAXone 1 GM/DEXTROSE 50 ML IV SCH (22:25)
[2019-12-19 00:40] VITALS: BP 130/75
[2019-12-19] MEDS: HEPARIN SODIUM 25000 UNITS/D5W 250 ML IV PRN (03:59)
[2019-12-19 05:21] VITALS: BP 129/75
[2019-12-19] MEDS: INSULIN LISPRO 100 UNITS/ML SQ PRN ×4 (06:48→20:25)
[2019-12-19 07:13] LABS: GLUCOMETER DEV NAME(LOC) 5S.1; GLUCOSE,POINT OF CARE 416 MG/DL (70-110)
[2019-12-19 07:13] LABS: GLUCOMETER DEV NAME(LOC) 5S.1; GLUCOSE,POINT OF CARE 302 MG/DL (70-110)
[2019-12-19 07:13] LABS: GLUCOMETER DEV NAME(LOC) 5S.1; GLUCOSE,POINT OF CARE 210 MG/DL (70-110)
[2019-12-19 07:53] VITALS: BP 131/79
[2019-12-19] MEDS: CALCIUM ACETATE 667 MG CAPSULE PO SCH ×3 (08:42→17:56)
[2019-12-19] MEDS: CINACALCET HCL 30 MG TABLET PO SCH (08:43)
[2019-12-19] MEDS: GABAPENTIN 100 MG CAPSULE PO SCH (08:43)
[2019-12-19] MEDS: DEXAMETHASONE 2 MG TABLET PO SCH (08:43)
[2019-12-19] MEDS: BUMETANIDE 1 MG TABLET PO SCH ×2 (08:43→20:18)
[2019-12-19] MEDS: ALLOPURINOL 100 MG TABLET PO SCH (08:43)
[2019-12-19] MEDS: OXYGEN THERAPY IH SCH ×2 (08:51→20:26)
[2019-12-19 11:13] VITALS: BP 143/79
[2019-12-19 12:30] LABS: GLUCOMETER DEV NAME(LOC) 5S.1; GLUCOSE,POINT OF CARE 211 MG/DL (70-110)
[2019-12-19 15:41] VITALS: BP 129/83
[2019-12-19 20:14] VITALS: BP 125/80
[2019-12-19] MEDS: INSULIN GLARGINE,HUM.REC.ANLOG 100 UNITS/ML SQ SCH (20:24)
[2019-12-19] MEDS: CefTRIAXone 1 GM/DEXTROSE 50 ML IV SCH (22:50)
[2019-12-20] VITALS (7 sets, daily range): BP systolic 122–143; BP diastolic 8–90
[2019-12-20 02:56] LABS: GLUCOMETER DEV NAME(LOC) 5S.1; GLUCOSE,POINT OF CARE 287 MG/DL (70-110)
[2019-12-20 02:56] LABS: GLUCOMETER DEV NAME(LOC) 5S.1; GLUCOSE,POINT OF CARE 261 MG/DL (70-110)
[2019-12-20 07:02] LABS: BASOPHILS % (AUTO) 0.1 % (0.0-2.0); EOSINOPHILS % (AUTO) 0.2 % (1.0-6.0); HEMATOCRIT 31.7 % (41-53); HEMOGLOBIN 10.7 g/dL (13.5-17.5); LYMPHOCYTES # (AUTO) 0.7 K/uL (1.0-4.8); MEAN CORPUSCULAR HEMOGLOBIN 31.8 pg (26.0-34.0); MEAN CORPUSCULAR HGB CONC 33.8 G/dL (31.0-37.0); MEAN CORPUSCULAR VOLUME 94 fL (80-100); MONOCYTES # (AUTO) 0.8 K/uL (0.1-1.0); NEUTROPHILS # (AUTO) 7.2 K/uL (1.8-7.7); NEUTROPHILS % (AUTO) 82.7 % (40.0-70.0); PLATELET COUNT (AUTO) 250 K/uL (150-450); RED BLOOD CELL COUNT(AUTO) 3.37 MIL/uL (4.50-5.90); RED CELL DISTRIBUTION WIDTH 13.8 % (11.5-14.5)
[2019-12-20] MEDS: INSULIN LISPRO 100 UNITS/ML SQ PRN ×3 (07:14→20:24)
[2019-12-20 07:15] LABS: D-DIMER 2.46 mg/L FEU (0.00-0.50)
[2019-12-20 08:00] LABS: GLUCOMETER DEV NAME(LOC) 5N.1; GLUCOSE,POINT OF CARE 169 MG/DL (70-110)
[2019-12-20 08:04] LABS: BILIRUBIN,TOTAL 0.3 mg/dL (0.1-1.0); C-REACTIVE PROTEIN QUANT 0.17 mg/dL (0.00-0.30); CALCIUM, TOTAL 8.8 mg/dL (8.8-10.5); CREATININE 9.43 mg/dL (0.60-1.30); POTASSIUM 4.9 mmol/L (3.5-5.1); TOTAL PROTEIN, SERUM 7.2 g/dL (6.4-8.2)
[2019-12-20] MEDS: BUMETANIDE 1 MG TABLET PO SCH ×2 (08:39→20:17)
[2019-12-20] MEDS: GABAPENTIN 100 MG CAPSULE PO SCH (08:39)
[2019-12-20] MEDS: ALLOPURINOL 100 MG TABLET PO SCH (08:39)
[2019-12-20] MEDS: CALCIUM ACETATE 667 MG CAPSULE PO SCH ×3 (08:39→18:29)
[2019-12-20] MEDS: DEXAMETHASONE 2 MG TABLET PO SCH (08:39)
[2019-12-20] MEDS: CINACALCET HCL 30 MG TABLET PO SCH (08:39)
[2019-12-20] MEDS: HEPARIN SODIUM,PORCINE 5,000 UNITS/ML VIAL IVP PRN ×2 (08:51→18:29)
[2019-12-20] MEDS: OXYGEN THERAPY IH SCH ×2 (08:51→20:18)
[2019-12-20] MEDS ORDERED: LEVOFLOXACIN 750 MG TABLET PO ONE (12:00)
[2019-12-20] MEDS: HEPARIN SODIUM 25000 UNITS/D5W 250 ML IV PRN (12:16)
[2019-12-20] MEDS ORDERED: SODIUM CHLORIDE 0.9% 2,000 ML ONE (13:15)
[2019-12-20] MEDS: INSULIN GLARGINE,HUM.REC.ANLOG 100 UNITS/ML SQ SCH (20:23)
[2019-12-21 04:38] VITALS: BP 125/86
[2019-12-21] MEDS: INSULIN LISPRO 100 UNITS/ML SQ PRN (06:39)
[2019-12-21 07:15] LABS: GLUCOMETER DEV NAME(LOC) 5N.1; GLUCOSE,POINT OF CARE 222 MG/DL (70-110)
[2019-12-21 07:15] LABS: GLUCOMETER DEV NAME(LOC) 5N.1; GLUCOSE,POINT OF CARE 169 MG/DL (70-110)
[2019-12-21 07:16] LABS: GLUCOMETER DEV NAME(LOC) 5S.1; GLUCOSE,POINT OF CARE 194 MG/DL (70-110)
[2019-12-21 07:16] LABS: GLUCOMETER DEV NAME(LOC) 5S.1; GLUCOSE,POINT OF CARE 323 MG/DL (70-110)
[2019-12-21 08:20] VITALS: BP 134/93
[2019-12-21] MEDS: CALCIUM ACETATE 667 MG CAPSULE PO SCH ×3 (08:44→18:52)
[2019-12-21] MEDS: ALLOPURINOL 100 MG TABLET PO SCH (08:45)
[2019-12-21] MEDS: CINACALCET HCL 30 MG TABLET PO SCH (08:45)
[2019-12-21] MEDS: GABAPENTIN 100 MG CAPSULE PO SCH (08:45)
[2019-12-21] MEDS: BUMETANIDE 1 MG TABLET PO SCH (08:45)
[2019-12-21] MEDS: EPOETIN ALFA 10,000 UNITS/ML VIAL SQ SCH (08:46)
[2019-12-21 12:32] LABS: GLUCOMETER DEV NAME(LOC) 5N.1; GLUCOSE,POINT OF CARE 135 MG/DL (70-110)
[2019-12-21] MEDS ORDERED: SODIUM CHLORIDE 0.9% 1,000 ML ONE (12:39)
[2019-12-21] MEDS ORDERED: LEVO250T75 PO (13:00)
[2019-12-21] MEDS ORDERED: INSLAN SQ (13:00)
[2019-12-21] MEDS ORDERED: SYRI-590 SQ (13:03)
[2019-12-21] MEDS ORDERED: LANC-962 TP (13:04)
[2019-12-21 13:10] VITALS: BP 116/63
[2019-12-21 17:08] VITALS: BP 120/78
[2019-12-21 19:23] VITALS: BP 118/71
[2019-12-22 08:08] LABS: GLUCOMETER DEV NAME(LOC) 5S.2A; GLUCOSE,POINT OF CARE 127 MG/DL (70-110)
[2019-12-22] MEDS ORDERED: LEVOFLOXACIN 250 MG TABLET PO SCH (09:00)
== END 2019-12-21 20:30 | disposition home or self-care (01) | DRG 871 ==
LOC: EMS 20:29 → 5N 23:20
PROVIDERS: ADMIT Internal Medicine; ATTEND Internal Medicine
PROC: 5A09357 Assistance with Respiratory Ventilation, Less than 24 Consecutive Hours, Continuous Positive Airway Pressure (ICD-10-PCS; 2019-12-11)
PROC: 30233K1 Transfusion of Nonautologous Frozen Plasma into Peripheral Vein, Percutaneous Approach (ICD-10-PCS; principal; 2019-12-12)
PROC: 5A1D70Z Performance of Urinary Filtration, Intermittent, Less than 6 Hours Per Day (ICD-10-PCS; 2019-12-12)
PROC: 30233K1 Transfusion of Nonautologous Frozen Plasma into Peripheral Vein, Percutaneous Approach (ICD-10-PCS; 2019-12-14)
PROC: 5A1D70Z Performance of Urinary Filtration, Intermittent, Less than 6 Hours Per Day (ICD-10-PCS; 2019-12-14)
PROC: 5A1D70Z Performance of Urinary Filtration, Intermittent, Less than 6 Hours Per Day (ICD-10-PCS; 2019-12-16)
PROC: 5A1D70Z Performance of Urinary Filtration, Intermittent, Less than 6 Hours Per Day (ICD-10-PCS; 2019-12-18)
PROC: 5A1D70Z Performance of Urinary Filtration, Intermittent, Less than 6 Hours Per Day (ICD-10-PCS; 2019-12-20)
PROC: 5A1D70Z Performance of Urinary Filtration, Intermittent, Less than 6 Hours Per Day (ICD-10-PCS; 2019-12-21)
DX: A41.9 Sepsis, unspecified organism (principal); U07.1 COVID-19; N18.6 End stage renal disease; J12.89 Other viral pneumonia; J96.01 Acute respiratory failure with hypoxia; D61.818 Other pancytopenia; I12.0 Hypertensive chronic kidney disease with stage 5 chronic kidney disease or end stage renal disease; N25.81 Secondary hyperparathyroidism of renal origin; D68.59 Other primary thrombophilia; Z68.42 Body mass index [BMI] 45.0-49.9, adult; Z99.2 Dependence on renal dialysis; E11.22 Type 2 diabetes mellitus with diabetic chronic kidney disease; E87.5 Hyperkalemia; E66.01 Morbid (severe) obesity due to excess calories; E78.5 Hyperlipidemia, unspecified; D72.810 Lymphocytopenia; D63.1 Anemia in chronic kidney disease
CPT/HCPCS: 36600; 82728; 82805; 83520; 83605; 83615; 83735; 84145; 84478; 85379; 85384; 86140; 86900; 86901; 86927; 87040; 87070; 87081; 87086; 87205; 87340; 87804; 93005; 94760; J0456; J0696; J0885; J1100; J1644; J1815; J7030; J7050; J8540; 36415-L1; 36415-TC; 71045-TC; U0003-CS